=== PATIENT | female | born 2000 | race Caucasian/White ===

== ENCOUNTER 2024-07-05 16:13 | Emergency (ER) | payer BC, SELFPAY ==
[2024-07-05 16:19] VITALS: BP 111/81
[2024-07-05] MEDS: TEGRETOL 200 MG PO (16:59)
--- NOTE | 2024-07-05 17:08 | ED.GENMED ---
History of Present Illness
General
Chief Complaint: Facial Problem
Source: patient
Exam Limitations: none
Time Seen by Provider: 07/05/24 16:23
Nursing documentation reviewed up to this point in time: agreed with
History of Present Illness
History of Present Illness:
Patient to ED [facility] complaint of intermittent right sided facial pain. Symptoms started in dec and has recently become more frequent and more intense. States pain is 9/10, not relieved by tylenol or ibuprofen. When pain is present she reports skin
is painful to touch, breeze/AC is painful. Located right jaw and extends to right side of face. No fever/chills, recent illness. No history of trauma. No redenss or swelling to face. Has not addressed symptoms with PCP. Has telehealth appt with
neuology next week.
Past History
Past History
ED Past Medical History: Other (Montes, EDS, connective tissue disorder, crohn disease, TMJ)
Review of Systems
Review of Systems
Allergies reviewed?: Yes
All Other Systems: ROS reviewed and negative except as documented in HPI and ROS
Constitutional: Reports no symptoms
EENT: Reports no symptoms
Respiratory: Reports no symptoms
Cardiac: Reports no symptoms
ABD/GI: Reports no symptoms
: Reports no symptoms
Musculoskeletal: Reports no symptoms
Skin: Reports no symptoms
Neurological: Reports other (shooting pain right side of face)
Psychiatric: Reports no symptoms
Phy Exam
General Physical Exam
General Presentation: well appearing and no apparent distress
General age: appears stated age
General Skin: warm and dry
General Habitus: normal
General Mental: alert
ENT Exam
ENT Exam: EOMI, TM's normal, pharynx normal and swallowing well
Eye Exam
Eye Exam: EOMI, conjunctiva normal and globe normal
Neurological Exam
Neurological Exam: alert, oriented x3, CN II-XII intact, no motor deficits, no sensory deficits, speech normal, normal gait and other (NO facial pain while in ED)
Musculoskeletal Exam
Musculoskeletal Exam: full ROM
Skin Exam
Skin Exam: normal color, warm/dry and no rash
Psychiatric Exam
Psychiatric Exam: normal mood/affect
Course
Orders/Labs/Results
Orders:
Orders
07/05/24 16:48
Carbamazepine [Tegretol] 200 mg PO NOW STA
Vital Signs
Initial and Last Documented VS:
Initial Vital Signs
Temp Pulse Resp BP Pulse Ox
98.9 F 95 16 111/81 100
07/05/24 16:19 07/05/24 16:19 07/05/24 16:19 07/05/24 16:19 07/05/24 16:19
Last Documented Vital Signs
Temp Pulse Resp BP Pulse Ox
98.9 F 95 16 111/81 100
07/05/24 16:19 07/05/24 16:19 07/05/24 16:19 07/05/24 16:19 07/05/24 16:19
*Critical Care Note
Total Time (30-74mins, 75-104mins- exclusive of procedures): Not Applicable
Update Note
Update Note:
Suspect trigemenal neurolagy. Will start Tegretol, 200mg bid. Will followu [facility] neurologist on as planned.
ED Attending Note
-
Portions of this chart may have been created with voice recognition software.� Occasional wrong word or��sound alike� substitutions may have occurred due to the inherent limitations of voice recognition software.
Discharge Plan
Departure
Patient Disposition: Home (Routine Discharge)
Date of Disposition: 07/05/24
Time of Disposition: 16:49
Patient with high blood pressure during this ER visit?: No
Condition: Good
Covid-19: Not Applicable
Discharge Problem:
Trigeminal neuralgia
Instructions: Trigeminal neuralgia
Prescriptions:
New
carbamazepine [Tegretol] 200 mg tablet
200 mg PO BID Qty: 30 0RF
Referrals:
UNKNOWN - PT DOES,NOT KNOW [Family Provider] -
Activity Restrictions/Additional Instructions:
Follow up with your neurologist as scheduled.
Interventions
Interventions:
*Risk Screen - Suicide Last Done: 07/05/24 16:29
*General Assessment Last Done: 07/05/24 16:29
*Neglect/Abuse Screening Last Done: 07/05/24 16:29
ED- Fall Risk Assessment Last Done: 07/05/24 16:29
*Nursing Disposition Last Done: 07/05/24 17:08
ED- Neurological Assessment Last Done: 07/05/24 16:29
ED-Skin Assessment Last Done: 07/05/24 16:29
Discharge Date and Time
Discharge Date/Time: 07/05/24 17:08
Print Language: GUINEAN
== END 2024-07-05 17:08 | disposition home or self-care (01) ==
LOC: EMR 16:13
PROVIDERS: EMERGENCY PHYSICIAN Emergency Medicine
DX: G50.0 Trigeminal neuralgia (principal); Q79.60 Ehlers-Danlos syndrome, unspecified; K50.90 Crohn's disease, unspecified, without complications
CPT/HCPCS: 99282